=== PATIENT | male | born 1975 | race American Indian/Alaskan Native ===

== ENCOUNTER 2018-09-23 20:19 | Emergency (ER) | payer OTHER ==
--- NOTE | 2018-09-23 22:22 | Emergency Department Report ---
Blank Doc - Documentation Documentation: left shoulder pain worse with rom 4/10. No SOB
[2018-09-23 22:23] VITALS: BP 124/81
--- NOTE | 2018-09-23 23:10 | XRay Report ---
PROCEDURE: XR SHOULDER 2+V LT TECHNIQUE: AP, Y, and oblique views of the left shoulder HISTORY: pain in the left shoulder COMPARISONS: None . FINDINGS: There is no evidence of acute fracture or dislocation. Joint spaces are maintained and bony mineraliz ation is normal. Soft tissues are unremarkable. IMPRESSION: No acute abnormality identified in the left shoulder. This document is electronically signed by Vanessa Alcala MD., September 23 2018 11:08:27 PM ET
--- NOTE | 2018-09-24 01:30 | Emergency Department Report ---
Upper Extremity - HPI Chief Complaint: Shoulder Injury Stated Complaint: SHOULDER PAIN Time Seen by Provider: 09/23/18 22:20 Upper Extremity: Left Shoulder Occurred When: 2 Days Mechanism: Other (lifting at work) Symptoms: Yes Pain with Movement, Yes Limited Range of Movement (first thing in the morning and improves as day goes on), No Numbness, No Weakness, No Swelling, No Bruising/Ecchymosis, No Laceration or Abrasion Other History: 43-year-old -[place] male presents to the emergency room for 2 days of left shoulder pain. Patient reports that the pain is worse in the morning and improves as the day goes on. Patient reports that he has limited movement and as he massages his left shoulder is movement improves. Patient has taken nothing for pain. He reports that the pain is achy and started yesterday. Patient reports he can normally do all his ADLs. He reports no past medical history takes no medications on a daily basis has no known drug allergies ED Review of Systems ROS: Stated complaint: SHOULDER PAIN Other details as noted in HPI Comment: All other systems reviewed and negative Musculoskeletal: arthralgia (left shoulder) ED Past Medical Hx - Past Medical History Previous Medical History?: No - Surgical History Past Surgical History?: Yes Additional Surgical History: left hand - Social History Smoking Status: Current Every Day Smoker Substance Use Type: Marijuana - Medications Home Medications: Home Medications Medication Instructions Recorded Confirmed Last Taken Type Baclofen [Lioresal] 10 mg PO TID #12 tab 09/24/18 Unknown Rx Ibuprofen [Motrin 800 MG tab] 800 mg PO Q8HR PRN #30 tablet 09/24/18 Unknown Rx Upper Extremity Exam - Exam General: Vital signs noted. No distress. Alert and acting appropriately. Head and Torso: No HEENT Abnormality, No Neck Tenderness, No Chest/Lungs Abnormality, No Abdominal Tenderness, No Back Tenderness Shoulder Exam: Yes Normal Range of Motion in Shoulder, Yes AC Joint Tenderness, No Shoulder Tenderness, No Clavicle Tenderness, No Shoulder Deformity Arm Exam: No Arm/Humerus Tenderness, No Arm Deformity Elbow: No Elbow Tenderness, No Normal Range of Motion in Elbow, No Elbow Deformity Forearm: No Forearm Tenderness, No Forearm Deformity, No Pain with Pronation, No Pain with Supination Wrist: Yes Normal ROM in Wrist, No Wrist Tenderness, No Wrist Deformity, No Snuffbox Tenderness, No Pain with Axial Thumb Compression Hand: Yes Normal ROM in Digit(s), No Hand Tenderness, No Hand Deformity, No Digit Tenderness, No Digit(s) Deformity, No Tendon Dysfunction ED Course Vital Signs 09/23/18 22:20 Temperature 98.4 F Pulse Rate 86 Respiratory 16 Rate Blood Pressure 124/81 O2 Sat by Pulse 99 Oximetry ED Medical Decision Making - Medical Decision Making Patient has been evaluated by this provider in fast track. Patient declines any pain medication at this moment reports that his pain is tolerable. Discuss with patient I will discharge him on ibuprofen and baclofen encourage patient to use warm and hot compresses. If symptoms persist or gets worse to follow up with orthopedic provider. Critical care attestation.: If time is entered above; I have spent that time in minutes in the direct care of this critically ill patient, excluding procedure time. ED Disposition Clinical Impression: Left shoulder strain Qualifiers: Encounter type: initial encounter Qualified Code(s): S46.912A - Strain of unspecified muscle, fascia and tendon at shoulder and upper arm level, left arm, initial encounter Disposition: - TO HOME OR SELFCARE Is pt being admited?: No Does the pt Need Aspirin: No Condition: Stable Instructions: Rotator Cuff Injury (ED) Additional Instructions: Please take pain medication and muscle relaxant for muscle spasms. Please allow your shoulder to rest. You can apply warm heat or ice. If your symptoms persist or gets worse please follow-up with orthopedic provider. Prescriptions: Baclofen [Lioresal] 10 mg PO TID #12 tab Ibuprofen [Motrin 800 MG tab] 800 mg PO Q8HR PRN #30 tablet PRN Reason: Pain , Severe (7-10) Referrals: BABITA WALKER MD [Staff Physician] - 3-5 Days JENNIE WADE MD [Staff Physician] - 3-5 Days Forms: Work/School Release Form(ED), Accompanied Note
== END 2018-09-24 01:43 | disposition home or self-care (01) ==
LOC: ED 20:19
DX: S46.912A Strain of unspecified muscle, fascia and tendon at shoulder and upper arm level, left arm, initial encounter (principal); F17.200 Nicotine dependence, unspecified, uncomplicated; F12.10 Cannabis abuse, uncomplicated; X50.0XXA Overexertion from strenuous movement or load, initial encounter; Y93.89 Activity, other specified; Y92.69 Other specified industrial and construction area as the place of occurrence of the external cause; Y99.0 Civilian activity done for income or pay
CPT/HCPCS: 99283